=== PATIENT | female | born 1955 | race Caucasian/White ===

== ENCOUNTER 2021-08-25 09:14 | Outpatient (REF) | payer MEDICARE, MEDICAID, SELFPAY ==
[2021-08-25 09:54] LABS: COVID-19 Test Negative (Negative)
== END 2021-08-25 09:15 | disposition home or self-care (01) ==
LOC: HO.HVNA 09:14
PROVIDERS: Visit Provider Internal Medicine
DX: Z20.822 Contact with and (suspected) exposure to COVID-19 (principal)
CPT/HCPCS: 87635

== ENCOUNTER → 2023-11-27 10:48 | Outpatient (RCR) | payer MEDICARE, SELFPAY ==
[2020-01-04 13:59] VITALS: BMI 20.6
[2020-01-04 14:36] VITALS: BP 160/92; PULSE 72; RESP 18; TEMP 36.2; O2SAT 98
[2020-01-04 14:41] LABS: Hematocrit 37.9 % (37-47); Hemoglobin 13.2 g/dl (12.0-16.0); Mean Corpuscular HGB Conc 34.8 g/dl (31.0-35.0); Mean Corpuscular Hemoglobin 32.8 pg (27.0-33.0); Mean Platelet Volume 9.6 fL (9.4-12.3); Platelet Count 294 X10*3/uL (160-400); Red Blood Count 4.03 X10*6/uL (4.20-5.50); Red Cell Distribution Width 12.2 % (11.0-16.0); White Blood Count 8.8 X10*3/uL (4.8-10.8)
[2020-01-04 15:14] LABS: Alanine Aminotransferase 14 U/L (0-31); Albumin Level 3.9 g/dL (3.5-5.0); Alkaline Phosphatase 100 U/L (39-117); Anion Gap 14 (12-20); Aspartate Amino Transferase 18 U/L (5-31); Bilirubin Total 0.2 mg/dL (0.0-1.0); Blood Urea Nitrogen 11 mg/dL (9-16); Calcium 9.1 mg/dL (8.4-10.2); Carbon Dioxide 26 mmol/L (22-29); Chloride 98 mmol/L (96-108); Creatinine Clr Calc Pharmacy 71.6; Estimated Glomerular Filt Rate > 60; Glucose Random 103 mg/dL (60-115); Sodium 134 mmol/L (135-145); Total Protein 7.1 g/dL (6.5-8.0)
--- NOTE | 2020-01-04 16:57 | PM.HEMONCPN ---
Medical Summary - Medical Summary Chief complaint: Follow-up Medical Summary: Diagnosis: Metastatic lung cancer diagnosed 2016 Admitted for falls and seizure like activity, weakness of rt side of body in Oct 2015. The MRI of the lumbar spine revealed a mass in the right adrenal gland, for which she underwent an MRI of the abdomen at [facility]. chest x-ray, which revealed a left suprahilar pulmonary mass measuring 5.7 cm x 2.3 cm, consistent with primary bronchogenic carcinoma. She underwent a CT of the chest without contrast which, again, demonstrated the left suprahilar mass, which occluded the bronchus of the upper lobe. There was moderate to severe pulmonary emphysema and a 3.7- x2.3-cm mass of the right adrenal gland read as metastasis. A brain CT without contrast revealed at least 2 lesions in the brain, one measuring 1.6 cm in the left posterior parasagittal-frontal convexity, with a large amount of surrounding vasogenic edema extending into both frontal and parietal lobes. One additional hypodense lesion measuring 8 mm in the left anterior frontal lobe was also seen with surrounding edema. A CT-guided biopsy of the adrenal gland biopsy of the right adrenal mass confirmed non-small cell lung cancer, adenocarcinoma, negative for EGFR and ALK mutations. Pt underwent stereotactic radiotherapy to both brain lesions at [facility]. PET scan performed 12/16/15 at [facility] demonstrated FDG avid left upper lobe solid mass SUV 14.6, FDG avid left upper lobe nodule abutting the surface SUV 2.4, abnormal FDG at 5 cm right adrenal mass is a 56 and FDG avid left central hemisphere solid mass. Started chemotherapy with carboplatin AUC 5, Alimta 500mg/m2 on 12/15/15. Avastin was discontinued after 2 cycles because of uncontrolled hypertension as well as brain lesions. Received 2 cycles of Taxotere in second line, found to have PDL 1 positive in greater than 90% tumor cells. Received first cycle of keytruda on 06/14/16. Admitted to [facility] June 28 for recurrent new brain lesions and surrounding edema. Received whole brain RT and decadron. Started back on chemotherapy Taxotere since she was receiving high-dose steroids. Tapered off steroids and resumed keytruda on 08/06/16.4 cycles showed complete metabolic response with resolution of previous abnormal uptake in the right adrenal gland and decreased activity in the left suprahilar mass to SUV 2. Residual intracranial lesion in the left frontal lobe. She was on keytruda 200 mg every 3 weeks from 08/06/16 until May 2017. She developed fairly significant allergic reaction after her last treatment. She developed generalized hives, shortness of breath which necessitated visit to the emergency department and observation. Medical and Surgical History 1. Hypertension. 2. Irritable bowel syndrome. 3. Monoclonal gammopathy. Followed by a dye room helper at [facility] for nearly 10 years. 4. Prolapsed bladder. 5. Basal cell skin cancer excised from the nose as well as left lower eyelid. 6. Trigeminal Neuralgia, on carbamazepine. Family History Father of metastatic lung cancer. He also had colon cancer at a younger age. Mother after a fall and injury to the spine. Social History and lives with her . She has 3 grownup children. For the last 2 years, she has been attending school for culinary/food management. She is a chronic smoker. No history of excess alcohol or illicit drug use. Menstrual History Postmenopausal Interval History Interval history: patient is here in follow-up. She is accompanied by her daughter today. She is doing quite well and has no complaints today. She has gained some weight. She denies any falls. She denies headache, dizziness, chest pain, worsening cough or shortness of breath, no change in bowel habits, denies diarrhea, hematochezia or melena. No leg pain or swelling. She is not on any new medications. She has not yet received the flu vaccination. Review of Systems - Constitutional Reports malaise, Denies anorexia, Denies fatigue Oncology Screenings - ECOG Performance Status ECOG Performance Status: 3 Home Medications and Allergies Home Medications Medication Instructions Recorded Confirmed Type budesonide-formoterol [Symbicort] inh INHALATION DAILY 01/04/20 History carbamazepine 300 mg PO DAILY 01/04/20 01/04/20 History diphenoxylate-atropine 1 tab PO DAILY 01/04/20 01/04/20 History dronabinol 2.5 mg PO DAILY 01/04/20 01/04/20 History fluticasone furoate-vilanterol INHALATION 01/04/20 History [Breo Ellipta] gabapentin 300 mg PO BEDTIME 01/04/20 01/04/20 History hydroxyzine HCl 25 mg PO DAILY 01/04/20 01/04/20 History lorazepam 0.5 mg PO BEDTIME 01/04/20 01/04/20 History oxycodone 01/04/20 History Allergies Allergy/AdvReac Type Severity Reaction Status Date / Time pembrolizumab [From KEYTRUDA] Allergy Severe HIVES,ANAPH Verified 01/04/20 14:21 YLAXIS bee pollen [BEE STINGS] Allergy Intermediate HIVES Verified 01/04/20 14:21 tramadol [TRAMADOL] AdvReac Intermediate HALLUCINATI Unverified 12/17/19 15:09 ONS SEASONAL ALLERGIES Allergy Unknown RUNNY NOSE Uncoded 12/17/19 15:09 Exam Vital signs: Vital Signs Temp 97.1 F 01/04/20 14:36 Pulse 72 01/04/20 14:36 Resp 18 01/04/20 14:36 BP 160/92 H 01/04/20 14:36 Pulse Ox 98 01/04/20 14:36 Intake & Output 01/03/20 01/04/20 01/04/20 18:59 06:59 18:59 Other: Weight 47.94 kg Weight 47.94 kg Body Mass Index 20.6 - Constitutional Present: no acute distress, chronically ill appearing - Routine HEENT Exam Head: Present: normal inspection Eye: Present: EOMI - Routine Neck Exam Present: full ROM. Absent: lymphadenopathy - Routine Chest/Breast/Axilla Exam Breast: Present: mass - Routine Respiratory Exam Present: CTAB - Routine Cardiovascular Exam Cardiovascular: Present: S1, S2 - Routine Extremities Exam Present: full ROM Data - Labs CBC & Chem 7: 01/04/20 14:03 01/04/20 14:03 Labs: Laboratory Results - last 24 hr 01/04/20 01/04/20 14:03 14:03 WBC 8.8 RBC 4.03 L Hgb 13.2 Hct 37.9 MCV 94.0 MCH 32.8 MCHC 34.8 RDW 12.2 Plt Count 294 MPV 9.6 Absolute Nucleated RBC 0.000 Nucleated RBC % (auto) 0.0 Sodium 134 L Potassium 4.0 Chloride 98 Carbon Dioxide 26 Anion Gap 14 BUN 11 Creatinine 0.57 Estim Creat Clear Calc 71.6 Estimated GFR > 60 Random Glucose 103 Calcium 9.1 Total Bilirubin 0.2 AST 18 ALT 14 Alkaline Phosphatase 100 Total Protein 7.1 Albumin 3.9 Progress Note: A/P (1) Metastatic lung cancer (metastasis from lung to other site) Start date: 01/04/20 Status: Acute Assessment and plan: 1. This is a 64-year-old female with metastatic lung adenocarcinoma diagnosed in October 2015. EGFR, ALK ROS-1 and KRAS negative. PDL1 psitive in greater than 90% of tumor cell. Patient was on nivolumab 240 mg IV every 2 weeks from June 17, 2017 to Apr 2018. From April to May 2018, her clinical condition and performance status deteriorated significantly. Immunotherapy was stopped. She is doing fairly well. No signs or symptoms of progressive brain metastasis. Her labs and physical examination low good today. 2. Recurrent brain metastasis, status post stereotactic radiation therapy x3. Last treatment in may 2016. S/p WBRT in june 2016. Repeat brain MRI in May 2018 shows decrease in size of left frontal lesion. Post treatment encephalopathy changes, volume loss. No new lesions. 3. COPD, on Combivent. This is stable. - Time Spent With Patient Total time spent is greater than 50% in coordination of care (as documented) at patient's floor/unit and/or counseling patient: 15 - 24 minutes
--- NOTE | 2020-01-05 09:47 | MHC.HEMONCNA ---
PT HERE IN FOLLOW UP, ACCOMPANIED BY DAUGHTER. HAS DIAGNOSIS SINCE OF METASTATIC LUNG CANCER TO BRAIN. NO LONGER ON TREATMENT BUT BEING FOLLOWED. REPORTS DOING AND COPING WELL. BRIEF FAMILY COUNSELING WAS PROVIDED.
--- NOTE | 2020-02-15 14:56 | P.PNHO_ITS ---
Hem[facility]Onc Clinic Telehealth - Telehealth Location of Provider rendering services: Office Location of Patient: Home Patient Identification confirmed using: Name, : Yes Telehealth Method: Telephone Patient verbally consented to billing insurance company: Yes Patient informed of any privacy concerns related to visit: Yes Medical Summary - Medical Summary Medical Summary: Diagnosis: Metastatic lung cancer diagnosed 2016 Admitted for falls and seizure like activity, weakness of rt side of body in Oct 2015. The MRI of the lumbar spine revealed a mass in the right adrenal gland, for which she underwent an MRI of the abdomen at [facility]. chest x-ray, which revealed a left suprahilar pulmonary mass measuring 5.7 cm x 2.3 cm, consistent with primary bronchogenic carcinoma. She underwent a CT of the chest without contrast which, again, demonstrated the left suprahilar mass, which occluded the bronchus of the upper lobe. There was moderate to severe pulmonary emphysema and a 3.7- x2.3-cm mass of the right adrenal gland read as metastasis. A brain CT without contrast revealed at least 2 lesions in the brain, one measuring 1.6 cm in the left posterior parasagittal-frontal convexity, with a large amount of surrounding vasogenic edema extending into both frontal and parietal lobes. One additional hypodense lesion measuring 8 mm in the left anterior frontal lobe was also seen with surrounding edema. A CT-guided biopsy of the adrenal gland biopsy of the right adrenal mass confirmed non-small cell lung cancer, adenocarcinoma, negative for EGFR and ALK mutations. Pt underwent stereotactic radiotherapy to both brain lesions at [facility]. PET scan performed 12/16/15 at [facility] demonstrated FDG avid left upper lobe solid mass SUV 14.6, FDG avid left upper lobe nodule abutting the surface SUV 2.4, abnormal FDG at 5 cm right adrenal mass is a 56 and FDG avid left central hemisphere solid mass. Started chemotherapy with carboplatin AUC 5, Alimta 500mg/m2 on 12/15/15. Avastin was discontinued after 2 cycles because of uncontrolled hypertension as well as brain lesions. Received 2 cycles of Taxotere in second line, found to have PDL 1 positive in greater than 90% tumor cells. Received first cycle of keytruda on 06/14/16. Admitted to [facility] June 28 for recurrent new brain lesions and surrounding edema. Received whole brain RT and decadron. Started back on chemotherapy Taxotere since she was receiving high-dose steroids. Tapered off steroids and resumed keytruda on 08/06/16.4 cycles showed complete metabolic response with resolution of previous abnormal uptake in the right adre nal gland and decreased activity in the left suprahilar mass to SUV 2. Residual intracranial lesion in the left frontal lobe. She was on keytruda 200 mg every 3 weeks from 08/06/16 until May 2017. She developed fairly significant allergic reaction after her last treatment. She developed generalized hives, shortness of breath which necessitated visit to the emergency department and observation. Medical and Surgical History 1. Hypertension. 2. Irritable bowel syndrome. 3. Monoclonal gammopathy. Followed by a striping machine operator at [facility] for nearly 10 years. 4. Prolapsed bladder. 5. Basal cell skin cancer excised from the nose as well as left lower eyelid. 6. Trigeminal Neuralgia, on carbamazepine. Family History Father of metastatic lung cancer. He also had colon cancer at a younger age. Mother after a fall and injury to the spine. Social History and lives with her . She has 3 grownup children. For the last 2 years, she has been attending school for culinary/food management. She is a chronic smoker. No history of excess alcohol or illicit drug use. Menstrual History Postmenopausal Interval History Interval history: This was a urgent tele visit with patient's family, son and daughter. According to them, Charity has been going downhill in the last 1 week. She is very spacey, overall quite weak and confused. She was seen a week ago by her PCP and started on Norvasc for blood pressure. She had preop visit at [facility] for upper teeth extraction. At this time patient is not able to swallow food and is not talking any since. They had canceled visiting nurse services from [facility] at the start of COV-19. Review of Systems - Constitutional Reports fatigue, Denies fever(s), Reports malaise, Reports weight loss - Respiratory Denies cough, Denies hemoptysis Home Medications and Allergies Home Medications Medication Instructions Recorded Confirmed Type budesonide-formoterol [Symbicort] 1 inh INHALATION DAILY 01/04/20 02/15/20 History carbamazepine 300 mg PO DAILY 01/04/20 01/04/20 History diphenoxylate-atropine 1 tab PO DAILY 01/04/20 01/04/20 History dronabinol 2.5 mg PO DAILY 01/04/20 01/04/20 History fluticasone furoate-vilanterol 1 inh INHALATION DAILY 01/04/20 02/15/20 History [Breo Ellipta] gabapentin 300 mg PO BEDTIME 01/04/20 01/04/20 History hydroxyzine HCl 25 mg PO DAILY 01/04/20 01/04/20 History lorazepam 0.5 mg PO BEDTIME 01/04/20 01/04/20 History amlodipine 2.5 mg PO DAILY 02/15/20 02/15/20 History Allergies Allergy/AdvReac Type Severity Reaction Status Date / Time pembrolizumab [From KEYTRUDA] Allergy Severe HIVES,ANAPH Verified 01/04/20 14:21 YLAXIS bee pollen [BEE STINGS] Allergy Intermediate HIVES Verified 01/04/20 14:21 tramadol [TRAMADOL] AdvReac Intermediate HALLUCINATI Unverified 12/17/19 15:09 ONS SEASONAL ALLERGIES Allergy Unknown RUNNY NOSE Uncoded 12/17/19 15:09 Exam Vital signs: Vital Signs Temp 97.1 F 01/04/20 14:36 Pulse 72 01/04/20 14:36 Resp 18 01/04/20 14:36 BP 160/92 H 01/04/20 14:36 Pulse Ox 98 01/04/20 14:36 Weight 47.94 kg Body Mass Index 20.6 - Constitutional Present: no acute distress, chronically ill appearing - Routine HEENT Exam Head: Present: normal inspection - Routine Neck Exam Present: full ROM. Absent: lymphadenopathy - Routine Respiratory Exam Present: CTAB - Routine Cardiovascular Exam Cardiovascular: Present: S1, S2 - Routine Extremities Exam Present: full ROM Data - Labs CBC & Chem 7: 01/04/20 14:03 01/04/20 14:03 Progress Note: A/P (1) Metastatic lung cancer (metastasis from lung to other site) Start date: 01/04/20 Status: Acute Assessment and plan: 1. This is a 64-year-old female with metastatic lung adenocarcinoma diagnosed in October 2015. EGFR, ALK ROS-1 and KRAS negative. PDL1 psitive in greater than 90% of tumor cell. Patient was on nivolumab 240 mg IV every 2 weeks from June 17, 2017 to Apr 2018. From April to May 2018, her clinical condition and performance status deteriorated significantly. Immunotherapy was stopped. 2. Recurrent brain metastasis, status post stereotactic radiation therapy x3. Last treatment in may 2016. S/p WBRT in june 2016. Repeat brain MRI in May 2018 shows decrease in size of left frontal lesion. Post treatment encephalopathy changes, volume loss. No new lesions. Patient appears to have declined significantly in 1 weeks time. This could be effect of antihypertensive or exposure to COVID-19 is a possibility since she was out of her home recently and she is at high risk of infection. I discussed available options of further management. 1. She was advised to come to the emergency room for immediate evaluation with brain scan to see if there is disease recurrence. 2. Stop Norvasc for a few days and have visiting/palliative nurse evaluation at home. Patient was on hospice care for a few months, she was switched to palliative c are when she did rather well, she was on palliative care until May of this year. Rosa ALFONZOAddis will be contacted for a nurse visit BESSIE. Patient's family chose option 2, they did not want to bring her to the emergency room today but will consider in the next few days if she continues to deteriorat e. - Time Spent With Patient Total time spent is greater than 50% in coordination of care (as documented) at patient's floor/unit and/or counseling patient: 15 - 24 minutes
--- NOTE | 2020-02-15 16:00 | MHC.HEMONCSW ---
PER REQUEST OF PT, FAMILY AND DR. MAC A REFERRAL IS MADE TO [place] AT [facility]. REPORTEDLY, FAILING AT HOME.
--- NOTE | 2020-06-13 11:08 | MHC.HEMONCSW ---
PER JULIÁN VISITING NURSES... HOSPICE. ONLY NURSING INVOLVED, WANTS NO OTHER SERVICES.
--- NOTE | 2020-07-25 13:13 | MHC.HEMONC ---
call from RUBY Elena RN saying pt port not able to flush after several attempts. Pt not using right now for any therapies. Pt and her dtr called by me to go over options of rad study/removal or leave alone as she is on hospice care (though she doesn't discuss that). She will think about it and let us know next week when Dr Bowden returns.
--- NOTE | 2020-08-26 08:46 | MHC.HEMONC ---
received call from RUBY Elena RN that pt wants to talk with Dr Bowden about her port which does not flush. She knows option of removal vs leaving alone but she still wants to speak with her Dr. I left message on pt phone that Dr Bowden won't be back in office until Saturday.
--- NOTE | 2021-07-13 15:29 | MHC.HEMONC ---
Received call from Natalie at [facility] stating Carbomezapine 300mg not formulary-requesting 200mg not chewable BID. Dr Bowden notified-order placed by provider. [facility] notified
== END | disposition home or self-care (01) ==
LOC: HO.ONC 01-04 13:16
PROVIDERS: Visit Provider Internal Medicine
DX: Z85.118 Personal history of other malignant neoplasm of bronchus and lung (principal); Z85.841 Personal history of malignant neoplasm of brain; Z79.899 Other long term (current) drug therapy; Z92.21 Personal history of antineoplastic chemotherapy; Z92.3 Personal history of irradiation
CPT/HCPCS: 80053; 85027; 99213; Q3014